=== PATIENT | male | born 1955 | race Caucasian/White ===

== ENCOUNTER → 2019-03-22 | Emergency (ER) | payer SELFPAY | LOC: ER 16:20 | DX: R56.9 Unspecified convulsions (principal); Z53.21 Procedure and treatment not carried out due to patient leaving prior to being seen by health care provider ==

== ENCOUNTER 2021-06-23 19:24 | Emergency (ER) | payer MEDICARE ==
[~2021-06-23] VITALS: Ht 177.8 cm; Wt 100.0 kg
[2021-06-23 19:35] VITALS: BP 154/98
[2021-06-23] MEDS ORDERED: HYDROMORPHONE HCL/PF 2MG/ML CPJ IV ONE (21:15)
[2021-06-23 21:18] LABS: EOSINOPHILS % 1.7 % (0.0-5.0); HEMATOCRIT. 40.2 % (42.0-52.0); HEMOGLOBIN. 13.6 g/dL (14.0-18.0); LYMPHOCYTES % 15.8 % (20.0-50.0); MEAN CORPUSCULAR VOLUME 91.7 fL (80.0-94.0); MEAN PLATELET VOLUME 8.1 fl (7.4-10.4); MONOCYTES % 8.2 % (2.0-8.0); NEUTROPHILS % 73.3 % (40.0-76.0); PLATELET 240 x1000/uL (130-400); RED BLOOD CELL COUNT 4.39 mill/uL (4.7-6.1); RED CELL DISTRIBUTION WIDTH 14.3 % (11.6-14.6)
[2021-06-23 21:23] LABS: CHLORIDE 111 mEq/L (98-107)
[2021-06-23] MEDS ORDERED: KETOROLAC 60MG/2ML VIAL IM ONE (22:30)
[2021-06-24] MEDS ORDERED: NAPROXEN 375MG TABLET PO ONE
[2021-06-24] MEDS ORDERED: NAPROXEN 500MG TABLET PO NR
== END 2021-06-24 01:03 | disposition home or self-care (01) ==
LOC: ER 19:24
DX: M87.9 Osteonecrosis, unspecified (principal); G89.29 Other chronic pain; S80.02XA Contusion of left knee, initial encounter; R51.9 Headache, unspecified; X58.XXXA Exposure to other specified factors, initial encounter; Y93.89 Activity, other specified; Y92.89 Other specified places as the place of occurrence of the external cause; Z86.718 Personal history of other venous thrombosis and embolism; Z79.01 Long term (current) use of anticoagulants; Z79.899 Other long term (current) drug therapy
CPT/HCPCS: 36415; 70450; 71045; 72170; 73562; 80053; 83880; 84484; 85025; 93005; 96372; 96374; 99285; J1170; J1885

== ENCOUNTER 2021-08-20 13:44 | Inpatient (IN) | payer MEDICARE ==
[~2021-08-20] VITALS: Ht 167.6 cm; Wt 99.8 kg
[2021-08-20] MEDS ORDERED: ASPIRIN 81MG TABLET PO ONE (20:30)
[2021-08-20] MEDS ORDERED: MORPHINE SULFATE 4 MG/ML CPJ (NOT FOR IM USE) IV ONE (20:30)
[2021-08-20 21:17] LABS: BASOPHILS % 1.1 % (0.0-2.0); EOSINOPHILS % 1.4 % (0.0-5.0); HEMATOCRIT. 42.8 % (42.0-52.0); LYMPHOCYTES % 15.3 % (20.0-50.0); MEAN CORPUSCULAR HEMOGLOBIN 30.7 pg (28.0-32.0); MEAN CORPUSCULAR VOLUME 93.5 fL (80.0-94.0); MEAN PLATELET VOLUME 8.1 fl (7.4-10.4); MONOCYTES % 9.7 % (2.0-8.0); NEUTROPHILS % 72.5 % (40.0-76.0); PLATELET 220 x1000/uL (130-400); RED BLOOD CELL COUNT 4.57 mill/uL (4.7-6.1); RED CELL DISTRIBUTION WIDTH 15.3 % (11.6-14.6)
[2021-08-20 21:32] LABS: CHLORIDE 107 mEq/L (98-107)
[2021-08-20 21:46] LABS: ETHANOL BLOOD < 10 mg/dL
[2021-08-21] MEDS ORDERED: LEVETIRACETAM 1000MG PREMIX 100 ML IV ONE (03:15)
[2021-08-21] MEDS ORDERED: ONDANSETRON HCL 4MG/2ML INJ IV PRN (15:00)
[2021-08-21] MEDS ORDERED: ACETAMINOPHEN 325MG TABLET PO PRN (15:00)
[2021-08-21] MEDS ORDERED: ENOXAPARIN 40MG/0.4ML SYR SUBCUT SCH (15:00)
[2021-08-21] MEDS ORDERED: NALOXONE HCL 0.4MG/ML VIAL IV PRN (15:00)
[2021-08-21] MEDS ORDERED: HYDROCODONE/ACETAMINOPHEN 10/325MG TABLET PO PRN (15:00)
[2021-08-21] MEDS ORDERED: OXYCODONE HCL 5MG TABLET PO PRN (18:00)
[2021-08-21] MEDS ORDERED: MORPHINE SULFATE 2 MG/ML CPJ (NOT FOR IM USE) IV PRN (18:15)
[2021-08-21] MEDS: LEVETIRACETAM 500MG/5ML CUP PO SCH ×3 (18:34→23:00)
[2021-08-21] MEDS: SODIUM CHLORIDE 0.9% 500 ML IV NR ×2 (18:36→19:40)
[2021-08-21 18:44] VITALS: BP 164/97
[2021-08-21 19:00] VITALS: BP 157/93
[2021-08-21] MEDS ORDERED: KEPP500 MT (19:41)
[2021-08-21] MEDS ORDERED: LISI40TA13 MT (19:41)
[2021-08-21] MEDS ORDERED: OXYC20TA41 PO (19:42)
[2021-08-21 22:00] VITALS: BP 151/89
[2021-08-21] MEDS: OXYCODONE HCL 5MG TABLET PO PRN (22:40)
[2021-08-22] VITALS (7 sets, daily range): BP systolic 124–149; BP diastolic 67–105
[2021-08-22] MEDS: OXYCODONE HCL 5MG TABLET PO PRN ×6 (02:38→22:44)
[2021-08-22] MEDS: LEVETIRACETAM 500MG/5ML CUP PO SCH ×2 (08:49→20:30)
[2021-08-22] MEDS: ASPIRIN 81MG TABLET PO SCH (08:49)
[2021-08-22] MEDS ORDERED: APIX5TAB MT (09:14)
[2021-08-22] MEDS ORDERED: ALLO100T MT (09:14)
[2021-08-22 10:36] LABS: BASOPHILS % 0.7 % (0.0-2.0); EOSINOPHILS % 1.6 % (0.0-5.0); HEMATOCRIT. 42.4 % (42.0-52.0); HEMOGLOBIN. 14.2 g/dL (14.0-18.0); MEAN CORPUSCULAR HEMOGLOBIN 31.6 pg (28.0-32.0); MEAN CORPUSCULAR VOLUME 94.3 fL (80.0-94.0); MEAN PLATELET VOLUME 8.7 fl (7.4-10.4); MONOCYTES % 6.8 % (2.0-8.0); NEUTROPHILS % 69.9 % (40.0-76.0); PLATELET 217 x1000/uL (130-400); RED CELL DISTRIBUTION WIDTH 15.1 % (11.6-14.6)
[2021-08-22 10:49] LABS: CHLORIDE 108 mEq/L (98-107)
[2021-08-22] MEDS: APIXABAN 5 MG TABLET PO SCH ×2 (10:52→20:31)
[2021-08-22 11:22] LABS: HDL CHOLESTEROL 48 mg/dL (40-59); LDL CHOLESTEROL 113 mg/dL (5-100); T4 FREE 0.88 ng/dL (0.76-1.46)
[2021-08-22] MEDS: ALLOPURINOL 100 MG TABLET PO SCH (14:50)
[2021-08-22] MEDS: LIDOCAINE 5% PATCH TOP SCH (14:56)
[2021-08-22] MEDS: DICLOFENAC SODIUM 1% GEL 50GM TOP SCH ×2 (17:34→20:32)
[2021-08-22 18:28] LABS: CREATINE KINASE MB FRACTION 1.4 ng/mL (0.5-3.6)
[2021-08-22] MEDS: ATORVASTATIN CALCIUM 40MG TABLET PO SCH (20:31)
[2021-08-23] MEDS: OXYCODONE HCL 5MG TABLET PO PRN ×6 (02:46→22:52)
[2021-08-23 02:48] VITALS: BP 143/86
[2021-08-23 06:38] VITALS: BP 140/70
[2021-08-23 07:02] LABS: CREATINE KINASE MB FRACTION 1.5 ng/mL (0.5-3.6)
[2021-08-23 10:25] VITALS: BP 130/82
[2021-08-23] MEDS: APIXABAN 5 MG TABLET PO SCH ×2 (10:40→21:00)
[2021-08-23] MEDS: LIDOCAINE 5% PATCH TOP SCH (10:40)
[2021-08-23] MEDS: LEVETIRACETAM 500MG/5ML CUP PO SCH ×2 (10:40→21:00)
[2021-08-23] MEDS: ALLOPURINOL 100 MG TABLET PO SCH (10:40)
[2021-08-23] MEDS: DICLOFENAC SODIUM 1% GEL 50GM TOP SCH ×5 (10:41→21:00)
[2021-08-23] MEDS: ASPIRIN 81MG TABLET PO SCH (10:41)
[2021-08-23 18:32] VITALS: BP 124/72
[2021-08-23] MEDS: ATORVASTATIN CALCIUM 40MG TABLET PO SCH (21:00)
[2021-08-24 02:42] VITALS: BP 158/81
[2021-08-24] MEDS: OXYCODONE HCL 5MG TABLET PO PRN ×6 (02:54→23:28)
[2021-08-24 06:29] VITALS: BP 135/98
[2021-08-24 08:00] VITALS: BP 155/82
[2021-08-24] MEDS: ASPIRIN 81MG TABLET PO SCH (09:52)
[2021-08-24] MEDS: LIDOCAINE 5% PATCH TOP SCH (09:52)
[2021-08-24] MEDS: LEVETIRACETAM 500MG/5ML CUP PO SCH ×2 (09:52→21:40)
[2021-08-24] MEDS: ALLOPURINOL 100 MG TABLET PO SCH (09:53)
[2021-08-24] MEDS: APIXABAN 5 MG TABLET PO SCH ×2 (09:53→21:40)
[2021-08-24] MEDS: DICLOFENAC SODIUM 1% GEL 50GM TOP SCH ×4 (09:53→21:00)
[2021-08-24 12:00] VITALS: BP 150/76
[2021-08-24] MEDS ORDERED: KEPP500 MT (12:41)
[2021-08-24] MEDS ORDERED: LISI40TA13 MT (12:41)
[2021-08-24] MEDS ORDERED: ALLO100T MT (12:41)
[2021-08-24] MEDS ORDERED: APIX5TAB MT (12:41)
[2021-08-24 16:00] VITALS: BP 150/76
[2021-08-24 20:00] VITALS: BP 134/71
[2021-08-24] MEDS: ATORVASTATIN CALCIUM 40MG TABLET PO SCH (21:40)
[2021-08-25] VITALS (7 sets, daily range): BP systolic 132–154; BP diastolic 64–101
[2021-08-25] MEDS: OXYCODONE HCL 5MG TABLET PO PRN ×5 (03:33→21:33)
[2021-08-25] MEDS: LEVETIRACETAM 500MG/5ML CUP PO SCH ×2 (09:16→21:34)
[2021-08-25] MEDS: ASPIRIN 81MG TABLET PO SCH (09:16)
[2021-08-25] MEDS: ALLOPURINOL 100 MG TABLET PO SCH (09:16)
[2021-08-25] MEDS: LIDOCAINE 5% PATCH TOP SCH (09:16)
[2021-08-25] MEDS: DICLOFENAC SODIUM 1% GEL 50GM TOP SCH ×4 (09:16→21:00)
[2021-08-25] MEDS: APIXABAN 5 MG TABLET PO SCH ×2 (09:16→21:34)
[2021-08-25] MEDS: ATORVASTATIN CALCIUM 40MG TABLET PO SCH (21:34)
[2021-08-26] VITALS: BP 121/70
[2021-08-26] MEDS: OXYCODONE HCL 5MG TABLET PO PRN ×2 (01:35→05:37)
[2021-08-26 04:00] VITALS: BP 132/89
[2021-08-26 05:37] VITALS: BP 132/89
== END 2021-08-26 08:30 | disposition home or self-care (01) | DRG 53 ==
LOC: ER 13:44 → 5EST 08-21 09:31 → ENRESERV 08-21 15:44 → 5EST 08-22 09:52 → 8WST 08-22 15:28
PROVIDERS: ADMIT Family Medicine; ATTEND Family Medicine
PROC: 4A10X4Z Monitoring of Central Nervous Electrical Activity, External Approach (ICD-10-PCS; principal; 2021-08-24)
DX: G40.909 Epilepsy, unspecified, not intractable, without status epilepticus (principal); F41.9 Anxiety disorder, unspecified; Z60.2 Problems related to living alone; M16.11 Unilateral primary osteoarthritis, right hip; R55 Syncope and collapse; G89.4 Chronic pain syndrome; Z99.3 Dependence on wheelchair; Z86.711 Personal history of pulmonary embolism; Z86.718 Personal history of other venous thrombosis and embolism; Z79.899 Other long term (current) drug therapy; Z79.01 Long term (current) use of anticoagulants
CPT/HCPCS: 36415; 71045; 72170; 80053; 80061; 80320; 82550; 82553; 83036; 83605; 83880; 84439; 84443; 84484; 85025; 85379; 93005; 93306; 93880; 93970; 95816; 97162; 97166; 99285; J1650; J2270; G0480

== ENCOUNTER 2021-09-17 17:05 | Emergency (ER) | payer MEDICARE ==
[~2021-09-17] VITALS: Ht 177.8 cm; Wt 100.0 kg
[~2021-09-17 17:05] MED LIST: ALLO100T MT; APIX5TAB MT; KEPP500 MT; LISI40TA13 MT; OXYC20TA41 PO
[2021-09-17] MEDS ORDERED: LEVETIRACETAM 1000MG PREMIX 100 ML IV ONE (18:30)
[2021-09-17] MEDS ORDERED: HYDROCODONE/ACETAMINOPHEN 5/325MG TABLET PO ONE (20:45)
[2021-09-17] MEDS: ACETAMINOPHEN 325MG TABLET PO NR ×2 (21:19→21:22)
[2021-09-17 22:35] LABS: BASOPHILS % 0.8 % (0.0-2.0); EOSINOPHILS % 2.3 % (0.0-5.0); HEMATOCRIT. 36.1 % (42.0-52.0); HEMOGLOBIN. 11.8 g/dL (14.0-18.0); LYMPHOCYTES % 20.5 % (20.0-50.0); MEAN CORPUSCULAR HEMOGLOBIN 30.6 pg (28.0-32.0); MEAN CORPUSCULAR VOLUME 93.5 fL (80.0-94.0); MEAN PLATELET VOLUME 8.3 fl (7.4-10.4); MONOCYTES % 10.1 % (2.0-8.0); NEUTROPHILS % 66.3 % (40.0-76.0); PLATELET 195 x1000/uL (130-400); RED BLOOD CELL COUNT 3.86 mill/uL (4.7-6.1); RED CELL DISTRIBUTION WIDTH 15.2 % (11.6-14.6)
[2021-09-17 22:43] LABS: CHLORIDE 106 mEq/L (98-107)
[2021-09-17 22:53] LABS: ETHANOL BLOOD < 10 mg/dL
[2021-09-17] MEDS ORDERED: KEPP500 MT (23:18)
[2021-09-18 01:09] VITALS: BP 132/85
== END 2021-09-18 01:09 | disposition home or self-care (01) ==
LOC: ER 17:05
DX: G40.909 Epilepsy, unspecified, not intractable, without status epilepticus (principal); S09.8XXA Other specified injuries of head, initial encounter; M79.604 Pain in right leg; M25.551 Pain in right hip; V86.19XA Passenger of other special all-terrain or other off-road motor vehicle injured in traffic accident, initial encounter; Y93.89 Activity, other specified; Y92.39 Other specified sports and athletic area as the place of occurrence of the external cause
CPT/HCPCS: 36415; 70450; 71045; 73502; 73552; 80053; 80320; 82542; 84484; 85025; 93005; 99285; C1893; G0480

== ENCOUNTER 2022-11-28 08:05 | Emergency (ER) | payer SELFPAY ==
[~2022-11-28] VITALS: Ht 177.8 cm; Wt 82.0 kg
[2022-11-28 08:11] VITALS: BP 140/60; PULSE 52; RESP 18; TEMP 98.2; O2SAT 100
[2022-11-28] MEDS ORDERED: ONDANSETRON HCL 4MG/2ML INJ IV STA (08:17)
[2022-11-28] MEDS ORDERED: MORPHINE SULFATE 4 MG/ML CPJ (NOT FOR IM USE) IV STA (08:17)
== END 2022-11-28 11:12 | disposition left against medical advice (07) ==
LOC: ER 08:10
DX: R19.7 Diarrhea, unspecified (principal); M79.10 Myalgia, unspecified site; Z98.890 Other specified postprocedural states
CPT/HCPCS: 99283

== ENCOUNTER 2023-04-06 19:40 | Emergency (ER) | payer SELFPAY ==
[~2023-04-06] VITALS: Ht 182.9 cm; Wt 90.0 kg
[2023-04-06 19:45] VITALS: BP 170/101; PULSE 104; RESP 18; TEMP 98.2; O2SAT 99
[2023-04-06 21:19] LABS: BASOPHILS % 0.4 % (0.0-2.0); EOSINOPHILS % 0.3 % (0.0-5.0); HEMATOCRIT. 42.2 % (42.0-52.0); HEMOGLOBIN. 13.9 g/dL (14.0-18.0); LYMPHOCYTES % 9.1 % (20.0-50.0); MEAN CORPUSCULAR HEMOGLOBIN 31.5 pg (28.0-32.0); MEAN CORPUSCULAR HGB CONC 32.9 g/dL (31.0-37.0); MEAN CORPUSCULAR VOLUME 95.8 fL (80.0-94.0); MEAN PLATELET VOLUME 7.9 fl (7.4-10.4); MONOCYTES % 9.4 % (2.0-8.0); NEUTROPHILS % 80.8 % (40.0-76.0); PLATELET 233 x1000/uL (130-400); RED BLOOD CELL COUNT 4.41 mill/uL (4.7-6.1); RED CELL DISTRIBUTION WIDTH 15.1 % (11.6-14.6)
[2023-04-06 21:30] LABS: ALANINE AMINOTRANSFERASE 11 IU/L (10-49); ALBUMIN 4.5 g/dL (3.2-4.8); ASPARTATE AMINOTRANSFERASE 10 IU/L (<34); BILIRUBIN TOTAL 0.6 mg/dL (0.1-1.0); CALCIUM 9.7 mg/dL (8.7-10.4); CARBON DIOXIDE 29 mEq/L (21-32); CHLORIDE 105 mEq/L (98-107); CREATININE 0.7 mg/dL (0.6-1.3); GLUCOSE 123 mg/dL (70-105); PROTEIN TOTAL 7.5 g/dL (6.0-8.3); SODIUM 140 mEq/L (136-145); UREA NITROGEN BLOOD 14 mg/dL (9-23)
[2023-04-06 21:41] LABS: ETHANOL BLOOD < 10 mg/dL (<10)
== END 2023-04-06 23:38 | disposition home or self-care (01) ==
LOC: ER 20:09
DX: K52.9 Noninfective gastroenteritis and colitis, unspecified (principal); Z90.49 Acquired absence of other specified parts of digestive tract
CPT/HCPCS: 36415; 80053; 80320; 85025; 99283; G0480

== ENCOUNTER 2024-05-11 23:49 | Emergency (ER) | payer MEDICAID, MEDICARE ==
[~2024-05-11] VITALS: Ht 167.6 cm; Wt 113.0 kg
[2024-05-12 00:17] VITALS: TEMP 36.7; O2SAT 98
[2024-05-12] MEDS: ACETAMINOPHEN 325MG TABLET PO ONE (04:53)
[2024-05-12] MEDS ORDERED: LEVETIRACETAM 500MG PREMIX 100 ML IV ONE ×2 (06:00)
[2024-05-12] MEDS ORDERED: OXYCODONE HCL/ACETAMINOPHEN 5/325MG TABLET PO ONE (06:00)
[2024-05-12 09:04] VITALS: BP 175/101; PULSE 82; RESP 18
[2024-05-12] MEDS: OXYCODONE HCL/ACETAMINOPHEN 5/325MG TABLET PO NR (09:04)
[2024-05-12] MEDS: LEVETIRACETAM 1000MG PREMIX 100 ML IV SCH (09:04)
[2024-05-12] MEDS ORDERED: ONDANSETRON HCL 4MG/2ML INJ IV PRN (14:30)
[2024-05-12] MEDS ORDERED: CLONIDINE 0.1MG TABLET PO PRN (14:30)
[2024-05-12] MEDS ORDERED: DOCUSATE SODIUM 100MG CAPSULE PO PRN (14:30)
[2024-05-12] MEDS ORDERED: IPRATROPIUM/ALBUTEROL 0.5-3(2.5)MG/3ML NEB HHN PRN (14:30)
[2024-05-12] MEDS ORDERED: MAGNESIUM/ALUMINUM HYDROXIDE/SIMETHICONE 30ML UDC PO PRN (14:30)
[2024-05-12] MEDS ORDERED: GUAIFENESIN 200MG/10ML SUGAR FREE UDC PO PRN (14:30)
[2024-05-12] MEDS ORDERED: ACETAMINOPHEN 325MG TABLET PO PRN ×2 (14:30)
[2024-05-12] MEDS: THIAMINE HCL 100MG TABLET PO SCH (16:41)
[2024-05-12 16:45] LABS: HEMOGLOBIN. 12.7 g/dL (14.0-18.0); RED BLOOD CELL COUNT 4.37 mill/uL (4.7-6.1); WHITE BLOOD COUNT 7.3 x1000/uL (4.5-11.0)
[2024-05-12 16:46] LABS: BASOPHILS % 0.5 % (0.0-2.0); EOSINOPHILS % 2.4 % (0.0-5.0); LYMPHOCYTES % 18.6 % (20.0-50.0); MEAN CORPUSCULAR HEMOGLOBIN 29.1 pg (28.0-32.0); MEAN CORPUSCULAR HGB CONC 31.8 g/dL (31.0-37.0); MEAN CORPUSCULAR VOLUME 91.5 fL (80.0-94.0); MEAN PLATELET VOLUME 8.8 fl (7.4-10.4); MONOCYTES % 12.3 % (2.0-8.0); NEUTROPHILS % 66.2 % (40.0-76.0); PLATELET 155 x1000/uL (130-400); RED CELL DISTRIBUTION WIDTH 15.3 % (11.6-14.6)
[2024-05-12 16:55] LABS: CARBON DIOXIDE 23 mEq/L (21-32); CHLORIDE 110 mEq/L (98-107); POTASSIUM 3.9 mEq/L (3.5-5.1); SODIUM 141 mEq/L (136-145)
[2024-05-12 16:56] LABS: CALCIUM 9.3 mg/dL (8.7-10.4)
[2024-05-12 17:00] LABS: CREATININE 0.7 mg/dL (0.6-1.3)
[2024-05-12 17:01] LABS: GLUCOSE 117 mg/dL (70-105); TROPONIN I HIGH SENSITIVITY < 4 ng/L (3.0-53); UREA NITROGEN BLOOD 6 mg/dL (9-23)
[2024-05-12 17:02] LABS: ALANINE AMINOTRANSFERASE 13 IU/L (10-49); ALBUMIN 3.8 g/dL (3.2-4.8); ASPARTATE AMINOTRANSFERASE 15 IU/L (<34)
[2024-05-12 17:03] LABS: BILIRUBIN DIRECT 0.2 mg/dL (<=3.0); BILIRUBIN TOTAL 0.4 mg/dL (0.1-1.0); PROTEIN TOTAL 6.1 g/dL (6.0-8.3)
[2024-05-12] MEDS: ENOXAPARIN 30MG/0.3ML SYR SUBCUT SCH (18:00)
[2024-05-12] MEDS ORDERED: AMLODIPINE 5MG TABLET PO SCH (18:15)
== END 2024-05-13 08:16 | disposition left against medical advice (07) ==
LOC: ER 23:49 → EDBEDREQ 05-12 08:26 → EDBEDREQTM 05-12 08:26 → ER 05-13 08:16 → CANBEDREQ 05-13 08:34
DX: R55 Syncope and collapse (principal); M25.551 Pain in right hip; M25.552 Pain in left hip; I10 Essential (primary) hypertension; Z86.718 Personal history of other venous thrombosis and embolism; Z79.899 Other long term (current) drug therapy; Z90.49 Acquired absence of other specified parts of digestive tract; Z99.3 Dependence on wheelchair
CPT/HCPCS: 99284; 80076; 80048; 83880; 85025; 84484; 96365; 36415; 73522; J1953; 99285; J1650

== ENCOUNTER 2024-06-30 02:31 | Emergency (ER) | payer MEDICARE ==
[~2024-06-30] VITALS: Ht 170.2 cm; Wt 107.0 kg
[2024-06-30 02:36] VITALS: TEMP 37; O2SAT 98
[2024-06-30] MEDS ORDERED: ACET-2708 MT (03:30)
[2024-06-30 05:23] VITALS: BP 120/70; PULSE 60; RESP 18; O2SAT 99
[2024-07-01] MEDS ORDERED: OXYC10TA48 PO (21:57)
== END 2024-06-30 06:00 | disposition home or self-care (01) ==
LOC: ER 02:46
DX: G89.29 Other chronic pain (principal); M79.606 Pain in leg, unspecified; E11.9 Type 2 diabetes mellitus without complications; G40.909 Epilepsy, unspecified, not intractable, without status epilepticus; I10 Essential (primary) hypertension; Z79.01 Long term (current) use of anticoagulants; Z79.899 Other long term (current) drug therapy; Z86.711 Personal history of pulmonary embolism; Z86.718 Personal history of other venous thrombosis and embolism; Z90.49 Acquired absence of other specified parts of digestive tract
CPT/HCPCS: 99283

== ENCOUNTER 2024-06-30 05:38 | Emergency (ER) | payer MEDICARE ==
[~2024-06-30 05:38] MED LIST changes: +ACET-2708 MT
[2024-07-01] MEDS ORDERED: OXYC10TA48 PO (21:57)
== END 2024-06-30 07:29 | disposition home or self-care (01) ==
LOC: ER 05:38
DX: R68.89 Other general symptoms and signs (principal); Z53.21 Procedure and treatment not carried out due to patient leaving prior to being seen by health care provider

== ENCOUNTER 2024-06-30 19:47 | Emergency (ER) | payer MEDICARE ==
[~2024-06-30] VITALS: Ht 177.8 cm; Wt 99.0 kg
[2024-06-30 19:57] VITALS: O2SAT 99
[2024-06-30 19:58] VITALS: BP 146/78; PULSE 100; RESP 18; TEMP 36.9; O2SAT 100
[2024-07-01] MEDS ORDERED: OXYC10TA48 PO (21:57)
== END 2024-07-01 03:33 | disposition home or self-care (01) ==
LOC: ER 19:47
DX: Z00.8 Encounter for other general examination (principal); I10 Essential (primary) hypertension; E11.9 Type 2 diabetes mellitus without complications; G40.909 Epilepsy, unspecified, not intractable, without status epilepticus; Z86.718 Personal history of other venous thrombosis and embolism; Z79.899 Other long term (current) drug therapy; Z86.711 Personal history of pulmonary embolism; Z90.49 Acquired absence of other specified parts of digestive tract
CPT/HCPCS: 99281